=== PATIENT | male | born 1995 ===

== ENCOUNTER 2021-05-12 11:23 | Inpatient (IN) | payer SELFPAY ==
--- NOTE | 2021-05-12 11:49 | Emergency Department Report ---
HPI - General Time Seen by Provider: 05/12/21 11:28 - HPI HPI: 25-year-old male presents to the emergency department via EMS with multiple witnessed seizures, and postictal altered mental status and combativeness. Apparently [place] morning when he had 1 seizure. EMS was called but the patient was awake, oriented at that time and refused transport to the emergency department. About an hour ago, around 10:45 AM, the patient was once again witnessed having a seizure and EMS was once again called. EMS says that the patient has had 3 further witnessed tonic-clonic seizures since that time. He was given 2 different doses of 2 mg of Ativan IV. The patient presents to the emergency department very agitated and combative. I did witness this agitation and combativeness and the patient was given a dose of Geodon so that we can get him into the emergency department for further evaluation. The patient does not have any known history of seizures. Patient is a poor historian secondary to his current medical condition. ED Review of Systems ROS: Stated complaint: SEIZURE Other details as noted in HPI Comment: Unobtainable due to pts medical conditions Physical Exam - Physical Exam Physical Exam: GENERAL: The patient is ill-appearing. HENT: Normocephalic. Atraumatic. Patient has moist mucous membranes. EYES: Pupils equal reactive to light bilaterally. NECK: Supple. Trachea is midline. CHEST/LUNGS: Clear to auscultation. There is no respiratory distress noted. HEART/CARDIOVASCULAR: Regular. There is mild tachycardia. There is no murmur. ABDOMEN: Abdomen is soft, nontender. Patient has normal bowel sounds. There is no abdominal distention. SKIN: Skin is warm and dry. NEURO: Patient is awake but postictal. He is confused and very agitated. Not following commands and not redirectable. No slurred speech. MUSCULOSKELETAL: There is no obvious deformity. There is no limitation range of motion. ED Medical Decision Making - Lab Data Result diagrams: 05/12/21 12:11 05/12/21 12:11 Lab Results 05/12/21 05/12/21 05/12/21 Range/Units 12:11 12:11 12:11 WBC 11.9 H (4.5-11.0) K/mm3 RBC 4.48 (3.65-5.03) M/mm3 Hgb 14.5 (11.8-15.2) gm/dl Hct 43.7 (35.5-45.6) % MCV 98 H (84-94) fl MCH 32 (28-32) pg MCHC 33 (32-34) % RDW 13.2 (13.2-15.2) % Plt Count 184 (140-440) K/mm3 Lymph % (Auto) 4.3 L (13.4-35.0) % Isabella % (Auto) 6.3 (0.0-7.3) % Eos % (Auto) 0.0 (0.0-4.3) % Baso % (Auto) 0.2 (0.0-1.8) % Lymph # (Auto) 0.5 L (1.2-5.4) K/mm3 Isabella # (Auto) 0.8 (0.0-0.8) K/mm3 Eos # (Auto) 0.0 (0.0-0.4) K/mm3 Baso # (Auto) 0.0 (0.0-0.1) K/mm3 Seg Neutrophils % 89.2 H (40.0-70.0) % Seg Neutrophils # 10.6 H (1.8-7.7) K/mm3 Sodium 139 (137-145) mmol/L Potassium 3.9 (3.6-5.0) mmol/L Chloride 103.8 (98-107) mmol/L Carbon Dioxide 19 L (22-30) mmol/L Anion Gap 20 mmol/L BUN 13 (9-20) mg/dL Creatinine 1.2 (0.8-1.3) mg/dL Estimated GFR > 60 ml/min BUN/Creatinine Ratio 11 % Glucose 106 H (75-100) mg/dL Calcium 8.7 (8.4-10.2) mg/dL Total Bilirubin 0.30 (0.1-1.2) mg/dL AST 32 (5-40) units/L ALT 30 (7-56) units/L Alkaline Phosphatase 57 (35-129) units/L Ammonia 42.0 (25-60) umol/L Total Creatine Kinase 978 H (55-170) units/L Total Protein 7.1 (6.3-8.2) g/dL Albumin 4.4 (3.9-5) g/dL Albumin/Globulin Ratio 1.6 % TSH (0.270-4.200) mlU/mL Urine Color (Yellow) Urine Turbidity (Clear) Urine pH (5.0-7.0) Ur Specific [place] (1.003-1.030) Urine Protein (Negative) mg/dL Urine Glucose (UA) (Negative) mg/dL Urine Ketones (Negative) mg/dL Urine Blood (Negative) Urine Nitrite (Negative) Urine Bilirubin (Negative) Urine Urobilinogen (<2.0) mg/dL Ur Leukocyte Esterase (Negative) Urine WBC (Auto) (0.0-6.0) /HPF Urine RBC (Auto) (0.0-6.0) /HPF U Epithel Cells (Auto) (0-13.0) /HPF Urine Mucus /HPF Urine Opiates Screen Urine Methadone Screen Ur Barbiturates Screen Ur Phencyclidine Scrn Ur Amphetamines Screen U Benzodiazepines Scrn Urine Cocaine Screen U Marijuana (THC) Screen Drugs of Abuse Note Plasma/Serum Alcohol (0-0.07) % 05/12/21 05/12/21 05/12/21 Range/Units 12:11 12:11 13:19 WBC (4.5-11.0) K/mm3 RBC (3.65-5.03) M/mm3 Hgb (11.8-15.2) gm/dl Hct (35.5-45.6) % MCV (84-94) fl MCH (28-32) pg MCHC (32-34) % RDW (13.2-15.2) % Plt Count (140-440) K/mm3 Lymph % (Auto) (13.4-35.0) % Isabella % (Auto) (0.0-7.3) % Eos % (Auto) (0.0-4.3) % Baso % (Auto) (0.0-1.8) % Lymph # (Auto) (1.2-5.4) K/mm3 Isabella # (Auto) (0.0-0.8) K/mm3 Eos # (Auto) (0.0-0.4) K/mm3 Baso # (Auto) (0.0-0.1) K/mm3 Seg Neutrophils % (40.0-70.0) % Seg Neutrophils # (1.8-7.7) K/mm3 Sodium (137-145) mmol/L Potassium (3.6-5.0) mmol/L Chloride (98-107) mmol/L Carbon Dioxide (22-30) mmol/L Anion Gap mmol/L BUN (9-20) mg/dL Creatinine (0.8-1.3) mg/dL Estimated GFR ml/min BUN/Creatinine Ratio % Glucose (75-100) mg/dL Calcium (8.4-10.2) mg/dL Total Bilirubin (0.1-1.2) mg/dL AST (5-40) units/L ALT (7-56) units/L Alkaline Phosphatase (35-129) units/L Ammonia (25-60) umol/L Total Creatine Kinase (55-170) units/L Total Protein (6.3-8.2) g/dL Albumin (3.9-5) g/dL Albumin/Globulin Ratio % TSH 1.210 (0.270-4.200) mlU/mL Urine Color Yellow (Yellow) Urine Turbidity Slightly-cloudy (Clear) Urine pH 5.0 (5.0-7.0) Ur Specific [place] 1.017 (1.003-1.030) Urine Protein 100 mg/dl (Negative) mg/dL Urine Glucose (UA) Neg (Negative) mg/dL Urine Ketones Neg (Negative) mg/dL Urine Blood Mod (Negative) Urine Nitrite Neg (Negative) Urine Bilirubin Neg (Negative) Urine Urobilinogen < 2.0 (<2.0) mg/dL Ur Leukocyte Esterase Neg (Negative) Urine WBC (Auto) 1.0 (0.0-6.0) /HPF Urine RBC (Auto) < 1.0 (0.0-6.0) /HPF U Epithel Cells (Auto) < 1.0 (0-13.0) /HPF Urine Mucus Few /HPF Urine Opiates Screen Urine Methadone Screen Ur Barbiturates Screen Ur Phencyclidine Scrn Ur Amphetamines Screen U Benzodiazepines Scrn Urine Cocaine Screen U Marijuana (THC) Screen Drugs of Abuse Note Plasma/Serum Alcohol < 0.01 (0-0.07) % 05/12/21 Range/Units 13:19 WBC (4.5-11.0) K/mm3 RBC (3.65-5.03) M/mm3 Hgb (11.8-15.2) gm/dl Hct (35.5-45.6) % MCV (84-94) fl MCH (28-32) pg MCHC (32-34) % RDW (13.2-15.2) % Plt Count (140-440) K/mm3 Lymph % (Auto) (13.4-35.0) % Isabella % (Auto) (0.0-7.3) % Eos % (Auto) (0.0-4.3) % Baso % (Auto) (0.0-1.8) % Lymph # (Auto) (1.2-5.4) K/mm3 Isabella # (Auto) (0.0-0.8) K/mm3 Eos # (Auto) (0.0-0.4) K/mm3 Baso # (Auto) (0.0-0.1) K/mm3 Seg Neutrophils % (40.0-70.0) % Seg Neutrophils # (1.8-7.7) K/mm3 Sodium (137-145) mmol/L Potassium (3.6-5.0) mmol/L Chloride (98-107) mmol/L Carbon Dioxide (22-30) mmol/L Anion Gap mmol/L BUN (9-20) mg/dL Creatinine (0.8-1.3) mg/dL Estimated GFR ml/min BUN/Creatinine Ratio % Glucose (75-100) mg/dL Calcium (8.4-10.2) mg/dL Total Bilirubin (0.1-1.2) mg/dL AST (5-40) units/L ALT (7-56) units/L Alkaline Phosphatase (35-129) units/L Ammonia (25-60) umol/L Total Creatine Kinase (55-170) units/L Total Protein (6.3-8.2) g/dL Albumin (3.9-5) g/dL Albumin/Globulin Ratio % TSH (0.270-4.200) mlU/mL Urine Color (Yellow) Urine Turbidity (Clear) Urine pH (5.0-7.0) Ur Specific [place] (1.003-1.030) Urine Protein (Negative) mg/dL Urine Glucose (UA) (Negative) mg/dL Urine Ketones (Negative) mg/dL Urine Blood (Negative) Urine Nitrite (Negative) Urine Bilirubin (Negative) Urine Urobilinogen (<2.0) mg/dL Ur Leukocyte Esterase (Negative) Urine WBC (Auto) (0.0-6.0) /HPF Urine RBC (Auto) (0.0-6.0) /HPF U Epithel Cells (Auto) (0-13.0) /HPF Urine Mucus /HPF Urine Opiates Screen Negative Urine Methadone Screen Negative Ur Barbiturates Screen Negative Ur Phencyclidine Scrn Negative Ur Amphetamines Screen Negative U Benzodiazepines Scrn Negative Urine Cocaine Screen Negative U Marijuana (THC) Screen Negative Drugs of Abuse Note Disclamer Plasma/Serum Alcohol (0-0.07) % - EKG Data -: EKG Interpreted by Or EKG shows normal: sinus rhythm, axis, intervals, QRS complexes, ST-T waves Rate: tachycardia (103 bpm) - EKG Data When compared to previous EKG there are: previous EKG unavailable Interpretation: normal EKG - Radiology Data Radiology results: report reviewed CT head/brain wo con INDICATION: AMS, new onset seizures. TECHNIQUE: Routine CT head. All CT scans at this location are performed using CT dose reduction for ALARA by means of automated exposure control. COMPARISON: None. FINDINGS: Intracranial: Cordero-white matter differentiation is maintained. No intracranial hemorrhage. No extra axial collection. No hydrocephalus. No herniation. Sinuses: Paranasal sinuses and mastoid air cells are essentially clear. Orbits: Globes are intact. Calvarium: No acute fracture. IMPRESSION: 1. No acute intracranial abnormality. - Medical Decision Making This patient presents to the emergency department after he had one seizure earlier in the day, and then later 3 witnessed seizures with tonic-clonic activity. Upon arrival to our emergency department the patient is postictal, confused but very agitated and aggressive. He already had received a total of 4 mg of Ativan IV. The patient was given a dose of Geodon so we could get him inside to start his work-up. The Geodon did take effect and the patient now appears to be sedated and/or resting comfortably without any obvious seizure- like activity. CT scan of the head without contrast does not have any hemorrhage, large vessel occlusion, edema, or any other acute process. Labs thus far have been unremarkable including CBC, metabolic panel, blood alcohol level, negative urine drug screen, normal thyroid function. This patient has never been to our emergency department previously, but as far as we know the patient does not have any known seizure disorder. This patient has been presen isabella to the admitting hospitalist, Dr Garibay, for admission. Critical Care Time: Yes Critical care time in (mins) excluding proc time.: 35 Critical care attestation.: If time is entered above; I have spent that time in minutes in the direct care of this critically ill patient, excluding procedure time. Critical care time wa s spent on this patient in doing his initial evaluation, multiple reevaluations, ordering and interpretation of labs and imaging, Geodon as treatment for his postictal agitation/delirium, IV antiepileptic as treatment for his seizures. Critical Care Time: 35 minutes ED Disposition Clinical Impression: Recurrent seizures, New onset seizure, Altered mental status Disposition: ADMITTED INPATIENT Is pt being admited?: Yes Condition: Serious Time of Disposition: 14:55
[2021-05-12] MEDS ORDERED: SODIUM CHLORIDE 0.9% 1000 ML 1,000 ML IV SCH (12:30)
[2021-05-12] MEDS ORDERED: levETIRAcetam 1000 MG/NS 0.75% 1,000 MG/100 ML BAG IV SCH (12:30)
--- NOTE | 2021-05-12 12:33 | Cat Scan Report ---
CT head/brain wo con INDICATION: AMS, new onset seizures. TECHNIQUE: Routine CT head. All CT scans at this location are performed using CT dose reduction for A JULIET by means of automated exposure control. COMPARISON: None. FINDINGS: Intracranial: Cordero-white matter differentiation is maintained. No intracranial hemorrhage. No extra a xial collection. No hydrocephalus. No herniation. Sinuses: Paranasal sinuses and mastoid air cells are essentially clear. Orbits: Globes are intact. Calvarium: No acute fracture. IMPRESSION: 1. No acute intracranial abnormality. Signer Name: Clemente Juan MD Signed: 05/12/2021 12:28 PM Workstation Name: [email or web address]
[2021-05-12 12:44] LABS: Basophils % (Auto) 0.2 % (0.0-1.8); Hematocrit 43.7 % (35.5-45.6); Hemoglobin 14.5 gm/dl (11.8-15.2); Lymphocytes # (Auto) 0.5 K/mm3 (1.2-5.4); Lymphocytes % (Auto) 4.3 % (13.4-35.0); Mean Corpuscular HGB Conc 33 % (32-34); Mean Corpuscular Volume 98 fl (84-94); Monocytes # (Auto) 0.8 K/mm3 (0.0-0.8); Monocytes % (Auto) 6.3 % (0.0-7.3); Platelet Count 184 K/mm3 (140-440); Red Blood Count 4.48 M/mm3 (3.65-5.03); Red Cell Distribution Width 13.2 % (13.2-15.2)
[2021-05-12 13:03] LABS: Alanine Aminotransferase 30 units/L (7-56); Albumin 4.4 g/dL (3.9-5); BUN/Creatinine Ratio 11; Blood Urea Nitrogen 13 mg/dL (9-20); Calcium 8.7 mg/dL (8.4-10.2); Hemolysis Index 4
[2021-05-12 13:35] LABS: Bilirubin,Urine NEG (Negative); Blood,Urine MOD (Negative); Color,Urine Yellow (Yellow); Mucus,Urine FEW /HPF; RBC,Urine < 1.0 /HPF (0.0-6.0); Urobilinogen,Urine < 2.0 mg/dL (<2.0)
[2021-05-12 14:15] LABS: Amphetamine Screen,Urine Negative; Benzodiazepines Screen,Urine Negative; Cannabinoid Screen,Urine Negative; Cocaine Screen,Urine Negative; Methadone Screen,Urine Negative; Opiate Screen,Urine Negative
[2021-05-12] MEDS ORDERED: ALBUTEROL 2.5 MG/3 ML NEBU IH PRN (15:56)
[2021-05-12] MEDS ORDERED: ACETAMINOPHEN 325 MG TAB PO PRN (15:56)
[2021-05-12] MEDS ORDERED: ONDANSETRON 4 MG/2 ML INJ IV PRN (15:56)
[2021-05-12] MEDS ORDERED: oxyCODONE /ACETAMINOPHEN 5-325MG TAB PO PRN (15:56)
[2021-05-12] MEDS ORDERED: HYDROmorphone 1 MG/1 ML INJ IV PRN (15:56)
--- NOTE | 2021-05-12 15:56 | History and Physical Report ---
History of Present Illness Chief complaint: He is having seizures History of present illness: 25 YO Male with Seizure Disorder presents ED for evaluation. Patient is postictal with diminished cognition and unable to evaluate the time my evaluation. Patient history taken from EMS staff, ED staff, as well as witnesses at the time of the seizure who was made available by telephone for interview. As per witness, the patient was at work and had a witnessed seizure this morning. EMS was notified and upon arrival the patient was found to be in distress and had 3 witnessed seizures during transport. Patient subsequent transported to [facility] for further care and evaluation of the aforementioned symptoms. The patient was seen and evaluated in the emergency department. All lab and imaging studies reviewed. Patient found to have status epilepticus complicated by metabolic encephalopathy, as well as rhabdomyolysis. Patient admitted to medical floor and initiated on antiepileptic therapy. Patient also treated with IV fluid resuscitation therapy. No reports of fever, chills, chest pain, palpitation, productive cough, skin rash, recent contact, no exposure to COVID-19. No prior mission for review. No medication listed at time of admission for reconciliation. Advanced care planning conducted in ED. Past History Past Medical History: seizures, other (See HPI) Past Surgical History: No surgical history, Other (Reviewed) Social history: single. denies: smoking, alcohol abuse, prescription drug abuse Family history: no significant family history, other (Reviewed) Medications and Allergies Active Meds: Active Medications Sodium Chloride (Nacl 0.9% 1000 Ml) 1,000 mls @ 125 mls/hr IV ONCE@1230 BRYAN Stop: 05/12/21 22:00 Last Admin: 05/12/21 13:01 Dose: 125 mls/hr Documented by: Levetiracetam (Keppra 1,000 Mg/Ns 0.75% 100ml) 1,000 mg in 100 mls @ 400 mls/hr IV ONCE@1230 BRYAN Stop: 05/12/21 16:30 Last Admin: 05/12/21 13:01 Dose: 400 mls/hr Documented by: Review of Systems ROS unobtainable: due to mental status Exam - Constitutional Vitals: Temp Pulse Resp BP Pulse Ox 99.1 F 111 H 18 119/82 98 05/12/21 11:53 05/12/21 11:53 05/12/21 11:53 05/12/21 11:53 05/12/21 11:53 General appearance: Present: mild distress, other (Lethargic) - EENT Eyes: Present: PERRL ENT: hearing intact, clear oral mucosa - Neck Neck: Present: supple, normal ROM - Respiratory Respiratory effort: normal Respiratory: bilateral: CTA - Cardiovascular Heart Sounds: Present: S1 & S2. Absent: rub, click - Extremities Extremities: pulses symmetrical, No edema Peripheral Pulses: within normal limits - Abdominal General gastrointestinal: Present: soft, non-tender, non-distended, normal bowel sounds Male genitourinary: Present: normal - Integumentary Integumentary: Present: clear, warm, dry - Musculoskeletal Musculoskeletal: generalized weakness - Psychiatric Psychiatric: no appropriate mood/affect, no intact judgment & insight, no memory intact - Neurologic Neurologic: CNII-XII intact, no focal deficits, moves all extremities, no gait normal Results - Labs CBC & Chem 7: 05/12/21 12:11 05/12/21 12:11 Labs: Abnormal lab results 05/12/21 05/12/21 Range/Units 12:11 12:11 WBC 11.9 H (4.5-11.0) K/mm3 MCV 98 H (84-94) fl Lymph % (Auto) 4.3 L (13.4-35.0) % Lymph # (Auto) 0.5 L (1.2-5.4) K/mm3 Seg Neutrophils % 89.2 H (40.0-70.0) % Seg Neutrophils # 10.6 H (1.8-7.7) K/mm3 Carbon Dioxide 19 L (22-30) mmol/L Glucose 106 H (75-100) mg/dL Total Creatine Kinase 978 H (55-170) units/L Assessment and Plan - Patient Problems (1) Status epilepticus Current Visit: Yes Status: Acute Plan to address problem: Patient loaded with Keppra 1 g in the emergency department and placed on Keppra twice daily. Patient initiated on Tegretol therapy. Neuro check, aspiration precautions, seizure precautions. CT scan brain. (2) Metabolic encephalopathy Current Visit: Yes Status: Acute Plan to address problem: BMP, IV fluid resuscitation therapy, repeat BMP in a.m., supportive care. (3) Rhabdomyolysis Current Visit: Yes Status: Acute Qualifiers: Encounter type: initial encounter Plan to address problem: IV fluid resuscitation therapy, CK level, repeat CK level in a.m., monitor urine output every shift. (4) DVT prophylaxis Current Visit: Yes Status: Acute Plan to address problem: SCD to bilateral lower extremities while in bed (5) Advance care planning Current Visit: Yes Status: Acute Plan to address problem: Disease education conducted, care plan discussed, diagnoses discussed, prognosis discussed, patient is full code. +30 minutes.
[2021-05-13] MEDS: levETIRAcetam 500 MG TAB PO SCH ×2 (01:16→09:57)
[2021-05-13] MEDS: carBAMazepine 100 MG TAB CHEW PO SCH ×2 (01:16→09:58)
[2021-05-13 06:39] LABS: BUN/Creatinine Ratio 11; Blood Urea Nitrogen 12 mg/dL (9-20); Calcium 8.2 mg/dL (8.4-10.2); Hemolysis Index 13
--- NOTE | 2021-05-13 07:41 | Progress Note ---
Assessment and Plan Assessment and plan: 25 YO Male with Seizure Disorder presents ED for evaluation. Patient is postictal with diminished cognition and unable to evaluate the time my evaluation. Patient history taken from EMS staff, ED staff, as well as witnesses at the time of the seizure who was made available by telephone for interview. As per witness, the patient was at work and had a witnessed seizure this morning. EMS was notified and upon arrival the patient was found to be in distress and had 3 witnessed seizures during transport. Patient subsequent transported to [facility] for further care and evaluation of the aforementioned sym ptoms. The patient was seen and evaluated in the emergency department. All lab and imaging studies reviewed. Patient found to have status epilepticus complicated by metabolic encephalopathy, as well as rhabdomyolysis. Patient admitted to medical floor and initiated on antiepileptic therapy. Patient also treated with IV fluid resuscitation therapy. No reports of fever, chills, chest pain, palpitation, productive cough, skin rash, recent contact, no exposure to COVID-19. No prior mission for review. No medication listed at time of admission for reconciliation. Advanced care planning conducted in ED. Status Epilepticus Seizure Disorder Metabolic Encephalopathy Rhabdomylysis Leukocytosis SIRS secondary to Seizure with no organ dysfunction on admission Patient loaded with Keppra 1 g in the emergency department and placed on Keppra twice daily. Patient initiated on Tegretol therapy. Neuro check, aspiration precautions, seizure precautions. CT scan brain. BMP, IV fluid resuscitation therapy, repeat BMP in a.m., supportive care. IV fluid resuscitation therapy, CK level, repeat CK level in a.m., monitor urine output every shift. 05/13: Continue to monitor respiratory and mental health status. Obtain complete med history. Patient UDS is negative and No evidence of infection, CT Head is negative. Will monitor for any aspiration considering worsening Leukocytosis and period of Encephalopathy during seizure. Will also obtain Neurology consult. Continue IVF and monitor CK level. DVT/GI PROPHY Counselling of 20 minutes provided to the patient and family member no driving or operating mechanized vehicle diving until cleared by outside neurologist. Per [place] law. Discharge based on neurology evaluation we will check CK level today continue IV fluids at this time History Interval history: Patient seen and examined this morning awake alert family member at bedside states that the patient had a seizure 7 years ago and again when they were a child but is not on any seizure medications and is unsure why the seizures happened at that time Hospitalist Physical - Physical exam Narrative exam: VITAL SIGNS: Reviewed. GENERAL: The patient appears normally developed, still a bit groggy otherwise no acute distress vital signs as documented. HEAD: No signs of head trauma. EYES: Pupils are equal. Extraocular motions intact. EARS: Hearing grossly intact. MOUTH: Oropharynx is normal. NECK: No adenopathy, no JVD. CHEST: Chest with clear breath sounds bilaterally. No wheezes, rales, or rhonchi. CARDIAC: Regular rate and rhythm. S1 and S2, without murmurs, gallops, or rubs. VASCULAR: No Edema. Peripheral pulses normal and equal in all extremities. ABDOMEN: Soft, non tender and non distended. No rebound or guarding, and no masses palpated. Bowel Sounds normal. MUSCULOSKELETAL: Good range of motion of all major joints. Extremities without clubbing, cyanosis or edema. NEUROLOGIC EXAM: Alert and oriented x 3 No focal sensory or strength deficits. Speech normal. Follows commands. PSYCHIATRIC: Mood normal. SKIN: Some tattoos, detail exam as documented in skin assessment - Constitutional Vitals: Temp Pulse Resp BP Pulse Ox 98.6 F 76 18 107/43 97 05/13/21 05:45 05/13/21 05:45 05/13/21 05:45 05/13/21 05:45 05/13/21 05:45 General appearance: Present: mild distress, other (Lethargic) Results - Labs CBC & Chem 7: 05/12/21 12:11 05/13/21 05:50 Labs: Laboratory Last Values WBC 11.9 K/mm3 (4.5-11.0) H 05/12/21 12:11 RBC 4.48 M/mm3 (3.65-5.03) 05/12/21 12:11 Hgb 14.5 gm/dl (11.8-15.2) 05/12/21 12:11 Hct 43.7 % (35.5-45.6) 05/12/21 12:11 MCV 98 fl (84-94) H 05/12/21 12:11 MCH 32 pg (28-32) 05/12/21 12:11 MCHC 33 % (32-34) 05/12/21 12:11 RDW 13.2 % (13.2-15.2) 05/12/21 12:11 Plt Count 184 K/mm3 (140-440) 05/12/21 12:11 Lymph % (Auto) 4.3 % (13.4-35.0) L 05/12/21 12:11 [place] % (Auto) 6.3 % (0.0-7.3) 05/12/21 12:11 Eos % (Auto) 0.0 % (0.0-4.3) 05/12/21 12:11 Baso % (Auto) 0.2 % (0.0-1.8) 05/12/21 12:11 Lymph # (Auto) 0.5 K/mm3 (1.2-5.4) L 05/12/21 12:11 [place] # (Auto) 0.8 K/mm3 (0.0-0.8) 05/12/21 12:11 Eos # (Auto) 0.0 K/mm3 (0.0-0.4) 05/12/21 12:11 Baso # (Auto) 0.0 K/mm3 (0.0-0.1) 05/12/21 12:11 Seg Neutrophils % 89.2 % (40.0-70.0) H 05/12/21 12:11 Seg Neutrophils # 10.6 K/mm3 (1.8-7.7) H 05/12/21 12:11 Sodium 139 mmol/L (137-145) 05/13/21 05:50 Potassium 3.7 mmol/L (3.6-5.0) 05/13/21 05:50 Chloride 104.7 mmol/L (98-107) 05/13/21 05:50 Carbon Dioxide 22 mmol/L (22-30) 05/13/21 05:50 Anion Gap 16 mmol/L 05/13/21 05:50 BUN 12 mg/dL (9-20) 05/13/21 05:50 Creatinine 1.1 mg/dL (0.8-1.3) 05/13/21 05:50 Estimated GFR > 60 ml/min 05/13/21 05:50 BUN/Creatinine Ratio 11 % 05/13/21 05:50 Glucose 102 mg/dL (75-100) H 05/13/21 05:50 Calcium 8.2 mg/dL (8.4-10.2) L 05/13/21 05:50 Total Bilirubin 0.30 mg/dL (0.1-1.2) 05/12/21 12:11 AST 32 units/L (5-40) 05/12/21 12:11 ALT 30 units/L (7-56) 05/12/21 12:11 Alkaline Phosphatase 57 units/L (35-129) 05/12/21 12:11 Ammonia 42.0 umol/L (25-60) 05/12/21 12:11 Total Creatine Kinase 1997 units/L (55-170) H 05/13/21 05:50 Total Protein 7.1 g/dL (6.3-8.2) 05/12/21 12:11 Albumin 4.4 g/dL (3.9-5) 05/12/21 12:11 Albumin/Globulin Ratio 1.6 % 05/12/21 12:11 TSH 1.210 mlU/mL (0.270-4.200) 05/12/21 12:11 Urine Color Yellow (Yellow) 05/12/21 13:19 Urine Turbidity Slightly-cloudy (Clear) 05/12/21 13:19 Urine pH 5.0 (5.0-7.0) 05/12/21 13:19 Ur Specific [place] 1.017 (1.003-1.030) 05/12/21 13:19 Urine Protein 100 mg/dl mg/dL (Negative) 05/12/21 13:19 Urine Glucose (UA) Neg mg/dL (Negative) 05/12/21 13:19 Urine Ketones Neg mg/dL (Negative) 05/12/21 13:19 Urine Blood Mod (Negative) 05/12/21 13:19 Urine Nitrite Neg (Negative) 05/12/21 13:19 Urine Bilirubin Neg (Negative) 05/12/21 13:19 Urine Urobilinogen < 2.0 mg/dL (<2.0) 05/12/21 13:19 Ur Leukocyte Esterase Neg (Negative) 05/12/21 13:19 Urine WBC (Auto) 1.0 /HPF (0.0-6.0) 05/12/21 13:19 Urine RBC (Auto) < 1.0 /HPF (0.0-6.0) 05/12/21 13:19 U Epithel Cells (Auto) < 1.0 /HPF (0-13.0) 05/12/21 13:19 Urine Mucus Few /HPF 05/12/21 13:19 Urine Opiates Screen Negative 05/12/21 13:19 Urine Methadone Screen Negative 05/12/21 13:19 Ur Barbiturates Screen Negative 05/12/21 13:19 Ur Phencyclidine Scrn Negative 05/12/21 13:19 Ur Amphetamines Screen Negative 05/12/21 13:19 U Benzodiazepines Scrn Negative 05/12/21 13:19 Urine Cocaine Screen Negative 05/12/21 13:19 U Marijuana (THC) Screen Negative 05/12/21 13:19 Drugs of Abuse Note Disclamer 05/12/21 13:19 Plasma/Serum Alcohol < 0.01 % (0-0.07) 05/12/21 12:11 Klein/IV: Voiding Method Urinal Active Medications - Current Medications Current Medications: Generic Name Dose Route Start Last Admin Trade Name Freq PRN Reason Stop Dose Admin Acetaminophen 650 mg 05/12/21 15:56 Acetaminophen 325 Mg Tab PO Q4H PRN Pain MILD(1-3)/Fever >100.5/VASQUEZ Albuterol 2.5 mg 05/12/21 15:56 Albuterol 2.5 Mg/3 Ml Nebu IH Q4HRT PRN Shortness Of Breath Carbamazepine 100 mg 05/12/21 22:00 05/13/21 01:16 Carbamazepine 100 Mg Tab Chew PO 100 mg BID BRYAN Administration Hydromorphone HCl 0.5 mg 05/12/21 15:56 Hydromorphone 1 Mg/1 Ml Inj IV Q23H PRN Pain , Severe (7-10) Levetiracetam 500 mg 05/12/21 22:00 05/13/21 01:16 Levetiracetam 500 Mg Tab PO 500 mg BID BRYAN Administration Ondansetron HCl 4 mg 05/12/21 15:56 Ondansetron 4 Mg/2 Ml Inj IV Q8H PRN Nausea And Vomiting Oxycodone/Acetaminophen 1 tab 05/12/21 15:56 Oxycodone /Acetaminophen 5-325mg Tab PO Q16H PRN Pain, Moderate (4-6) Sodium Chloride 10 ml 05/12/21 22:00 05/13/21 01:17 Sodium Chloride 0.9% 10 Ml Flush Syringe IV 10 ml BID BRYAN Administration Sodium Chloride 10 ml 05/12/21 15:56 Sodium Chloride 0.9% 10 Ml Flush Syringe IV PRN PRN LINE FLUSH
[2021-05-13] MEDS ORDERED: SODIUM CHLORIDE 0.9% 1000 ML 1,000 ML IV SCH (09:30)
[2021-05-13] MEDS ORDERED: SODIUM CHLORIDE 0.9% 1000 ML 1,000 ML IV ONE (09:43)
[2021-05-13 12:12] VITALS: BP 109/53
--- NOTE | 2021-05-13 15:30 | Consultation ---
History of Present Illness Consult date: 05/13/21 Chief complaint: 25 YO Male with Seizure Disorder presents ED for evaluation. Patient is postictal with diminished cognition and unable to evaluate the time my evaluatio n. Patient history taken from EMS staff, ED staff, as well as witnesses at the time of the seizure who was made available by telephone for interview. As per witness, the patient was at work and had a witnessed seizure this morning. EMS was notified and upon arrival the patient was found to be in distress and had 3 witnessed seizures during transport. Patient subsequent transported to [facility] for further care and evaluation of the aforementioned symptoms. The patient was seen and evaluated in the emergency department. All lab and imaging studies reviewed. Patient found to have status epilepticus complicated by metabolic encephalopathy, as well as rhabdomyolysis. Patient admitted to medical floor and initiated on antiepileptic therapy. Patient also treated with IV fluid resuscitation therapy. No reports of fever, chills, chest pain, palpitation, productive cough, skin rash, recent contact, no exposure to COVID-19. No prior mission for review. No medication listed at time of admission for reconciliation. Advanced care planning conducted in ED. The patient is currently stable - Keppra 1000 4 tabs a day . The patient missed the dose . Overall Stable . Past History Past Medical History: seizures, other (See HPI) Past Surgical History: No surgical history, Other (Reviewed) Social history: single. denies: smoking, alcohol abuse, prescription drug abuse Family history: no significant family history, other (Reviewed) Medications and Allergies Allergies Allergy/AdvReac Type Severity Reaction Status Date / Time No Known Allergies Allergy Unverified 05/12/21 20:07 Home Medications Medication Instructions Recorded Confirmed Last Taken Type levETIRAcetam [Keppra TAB] 2,000 mg PO BID 05/13/21 05/13/21 Unknown History Active Meds: Active Medications Acetaminophen (Acetaminophen 325 Mg Tab) 650 mg PO Q4H PRN PRN Reason: Pain MILD(1-3)/Fever >100.5/VASQUEZ Albuterol (Albuterol 2.5 Mg/3 Ml Nebu) 2.5 mg IH Q4HRT PRN PRN Reason: Shortness Of Breath Carbamazepine (Carbamazepine 100 Mg Tab Chew) 100 mg PO BID BRYAN Last Admin: 05/13/21 09:58 Dose: 100 mg Documented by: Hydromorphone HCl (Hydromorphone 1 Mg/1 Ml Inj) 0.5 mg IV Q23H PRN PRN Reason: Pain , Severe (7-10) Sodium Chloride (Nacl 0.9% 1000 Ml) 1,000 mls @ 125 mls/hr IV DIRECT [facility] Levetiracetam (Levetiracetam 500 Mg Tab) 500 mg PO BID [facility] Last Admin: 05/13/21 09:57 Dose: 500 mg Documented by: Ondansetron HCl (Ondansetron 4 Mg/2 Ml Inj) 4 mg IV Q8H PRN PRN Reason: Nausea And Vomiting Oxycodone/Acetaminophen (Oxycodone /Acetaminophen 5-325mg Tab) 1 tab PO Q16H P RN PRN Reason: Pain, Moderate (4-6) Sodium Chloride (Sodium Chloride 0.9% 10 Ml Flush Syringe) 10 ml IV BID [facility] Last Admin: 05/13/21 09:58 Dose: 10 ml Documented by: Sodium Chloride (Sodium Chloride 0.9% 10 Ml Flush Syringe) 10 ml IV PRN PRN PRN Reason: LINE FLUSH Physical Examination - Vital Signs Vital Signs: Vital Signs Temp Pulse Resp BP Pulse Ox 99.1 F 111 H 18 119/82 98 05/12/21 11:53 05/12/21 11:53 05/12/21 11:53 05/12/21 11:53 05/12/21 11:53 - Physical Exam Narrative exam: The patient is alert, Per Nurse stable . Results - Laboratory Findings CBC and BMP: 05/12/21 12:11 05/13/21 05:50 Abnormal Lab Findings: Abnormal Labs 05/12/21 05/12/21 05/13/21 12:11 12:11 05:50 WBC 11.9 H MCV 98 H Lymph % (Auto) 4.3 L Lymph # (Auto) 0.5 L Seg Neutrophils % 89.2 H Seg Neutrophils # 10.6 H Carbon Dioxide 19 L Glucose 106 H 102 H Calcium 8.2 L Total Creatine Kinase 978 H 1997 H 05/13/21 12:33 WBC MCV Lymph % (Auto) Lymph # (Auto) Seg Neutrophils % Seg Neutrophils # Carbon Dioxide Glucose Calcium Total Creatine Kinase 1628 H Assessment and Plan 1. 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 2. Last Seizure 7 years back. 3. Increase Keppra to 4500 mg daily dose 2 in am and 2 .5 night . 4. No driving 6 months . 5. Follow up with Neurology in [place]. 6. Recommend to follow with Neurology in 1-2 weeks . 7. Patient can be discharged Dr. Gregg FORD
--- NOTE | 2021-05-13 17:07 | Discharge Summary ---
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 2. Last Seizure 7 years back. 3. Increase Keppra to 4500 mg daily dose 2 in am and 2 .5 night . 4. No driving 6 months . 5. Follow up with Neurology in [facility]. 6. Recommend to follow with Neurology in 1-2 weeks . 7. Patient can be discharged Disposition: 01 HOME / SELF CARE / HOMELESS Exam - Constitutional Vitals: Temp Pulse Resp BP Pulse Ox 98.7 F 77 16 109/53 96 05/13/21 12:12 05/13/21 12:12 05/13/21 12:12 05/13/21 12:12 05/13/21 12:12 Plan Activity: no driving until cleared by PCP Diet: regular Special Instructions: record daily weights, record daily BP diary Additional Instructions: Complex Partial Seizures . 2. Last Seizure 7 years back. 3. Increase Keppra to 4500 mg daily dose 2 in am and 2 .5 night . 4. No driving 6 months . 5. Follow up with Neurology in [facility]. 6. Recommend to follow with Neurology in 1-2 weeks . 7. Patient can be discharged Follow up with: PRIMARY CAREMD [Primary Care Provider] - 7 Days Prescriptions: levETIRAcetam [Keppra TAB] 0 mg PO . DIRECTED #100 tablet
--- NOTE | 2021-05-15 10:02 | Electrocardiograph Report ---
[facility] Test Date: 2021-05-12 Test Time: 12:30:54 Pat Name: FLOYD DUDLEY Department: Room: A366 Gender: M Store Product Demonstrator: JESUS TSANG : 1995 Requested By: MICHELLE FORD Order Number: [id number] Reading MD: Jevon Santiago Measurements Intervals [place] Rate: 103 P: 67 [place]: 130 QRS: 78 QRSD: 100 T: 37 QT: 325 QTc: 425 Interpretive Statements Sinus tachycardia Otherwise normal ECG No previous ECG available for comparison Electronically Signed On 05-15-2021 10:02:23 EST by Jevon Santiago
== END 2021-05-13 18:20 | disposition home or self-care (01) | DRG 101 ==
LOC: ED 11:23 → 3A 15:56
PROVIDERS: ADMIT Internal Medicine; ATTEND Internal Medicine
DX: G40.201 Localization-related (focal) (partial) symptomatic epilepsy and epileptic syndromes with complex partial seizures, not intractable, with status epilepticus (principal); M62.82 Rhabdomyolysis; R65.10 Systemic inflammatory response syndrome (SIRS) of non-infectious origin without acute organ dysfunction
CPT/HCPCS: 36415; 70450; 80048; 80053; 80177; 80307; 80320; 81001; 82140; 82550; 84443; 85025; 93005; 99291; G0378; Q0162; G0480; J1953; J7030